=== PATIENT | male | born 1955 | race Caucasian/White ===

== ENCOUNTER → 2020-04-30 12:59 | Outpatient (CLI) | payer BC, SELFPAY ==
[2020-04-30 14:11] LABS: Basophils % 0.2 % (0.1-2.0); Eosinophils # 0.1 K/mm3 (0.0-0.4); Eosinophils % 1.1 % (0.1-12.0); Hematocrit 47.7 % (42.0-52.0); Hemoglobin 15.8 g/dL (14.1-18.0); Lymphocytes # 2.7 K/mm3 (0.7-4.5); Lymphocytes % 40.5 % (10-50); Mean Corpuscular HGB Conc 33.2 g/dL (31.8-35.4); Mean Corpuscular Hemoglobin 30.8 pg (27.0-31.2); Mean Platelet Volume 8.6 fl (7.4-10.4); Monocytes # 0.4 K/mm3 (0.1-1.0); Monocytes % 6.4 % (1.7-9.3); Neutrophils # 3.5 K/mm3 (1.8-7.8); Neutrophils % 51.9 % (37.0-80.0); Platelet Count 179 K/mm3 (142-424); Red Blood Count 5.13 M/mm3 (4.60-6.20); Red Cell Distribution Width 12.7 % (11.5-17.5); White Blood Count 6.7 K/mm3 (4.8-10.8)
[2020-04-30 15:27] LABS: Alanine Aminotransferase 25 U/L (12-78); Albumin Level 4.5 g/dl (3.5-5.0); Albumin/Globulin Ratio 1.8 (1.1-1.8); Alkaline Phosphatase 73 U/L (38-126); Anion Gap 12.6 mEq/L (5-15); Aspartate Amino Transferase 31 U/L (17-59); Bilirubin,Total 0.7 mg/dl (0.2-1.3); Blood Urea Nitrogen 20 mg/dl (9-20); Calcium 9.6 mg/dl (8.4-10.2); Carbon Dioxide 29 mmol/L (22.0-30.0); Chloride 102 mmol/L (98-107); Chol/HDL Ratio 4.4 (1-3.5); Cholesterol 231 mg/dl (140-200); Estimated Glomerular Filt Rate 76 ml/min (>60); GFR (African American) 92 ML/MIN (>60); Globulin 2.5 g/dL (1.3-3.2); Glucose 85 mg/dl (74-100); HDL Cholesterol 53 mg/dl (40-60); Potassium 4.6 mmoL/L (3.5-5.1); Sodium 139 mmol/L (136-145); Triglycerides 103 mg/dl (30-150); VLDL Cholesterol 21 mg/dL (0-40)
[2020-04-30 15:59] LABS: Prostate Specific Ag Screen 0.8 ng/ml (0.0-4.0); Thyroid Stimulating Hormone 2.09 uIU/mL (0.465-4.68)
[2020-05-02 13:01] LABS: C-Reactive Protein, Cardiac 1.19 mg/L (0.00-3.00)
== END ==
PROVIDERS: Visit Provider Internal Medicine
DX: E78.49 Other hyperlipidemia (principal); Z12.5 Encounter for screening for malignant neoplasm of prostate
CPT/HCPCS: 36415; 80053; 80061; 84443; 85025; 86141; G0103

== ENCOUNTER 2023-11-01 11:00 | Outpatient (RCR) | payer MEDICARE, SELFPAY ==
--- NOTE | 2023-10-01 17:49 | HMH.RHREAS ---
Rehab Reassessment Rehab OP Re-assessment Start: 07/20/23 14:53 Freq: Status: Active Protocol: Document 10/01/23 17:42 IMMANUEL (Rec: 10/01/23 17:49 IMMANUEL [email or web address]) E-signed By Kashif Waldron, PT QuickDASH Activities Please rate your ability to do the following activities in the last week by selecting the number below the appropriate response. 1. Open a tight or new jar. Mild difficulty 2. Do heavy c d reactor operator (e.g., wash Mild difficulty elena, floors). 3. Carry a shopping bag or briefcase. Mild difficulty 4. Wash your back. Moderate difficulty 5. Use a knife to cut food. Mild difficulty 6. Recreational activities in which you Severe difficulty take some force or impact through your arm, shoulder, or hand (e.g., golf, hammering, tennis, etc.). 7. During the past week, to what extent Not at all has your arm, shoulder or hand problem interfered with your normal social activities with family, friends, neighbors or groups? 8. During the past week, were you Slightly limited limited in your work or other regular daily activites as a result of your arm, shoulder or hand problem? 9. Arm, shoulder or hand pain. Moderate 10. Tingling (pins and needles) in your None arm, shoulder or hand. 11. During the past week, how much Moderate difficulty difficulty have you had sleeping because of the pain in your arm, shoulder or hand? Quick DASH 25 Rehab Re-assessment Subjective Subjective Patient reports 65% improvements since start of care. [ End ] Objective Objective Notes AROM: WNL MMT: WNL except for IR 4-/5 secondary to pain. Pain: 4/10 currently; 7/10 at worst over past week Neuro: WNL TTP: post ACJ 2/4 Assessment Progress Assessment Progressing as Expected Assessment Notes Patient has been seen in outpatient PT for 3 treatment visits secondary to time constraints with family illness. Most recently experienced an exacerbation of symptoms after an incident with pulling activities with work related activities. Patient would benefit from continuing with skilled PT interventions in order to address functional limitations with reaching/lifting/pulling activities. Patient goals met STG 2; LTG AROM Goals Not Met All others Revised Goals NA Plan Plan Continue with current POC. Frequency of Therapy 2x/week Duration of therapy 4 weeks Time and Billing Re-Eval Time 14 Re-Eval Billing Units 1 PHYSICIAN CERTIFICATION: I certify the specified therapy services for Sandip Boyle are required, authorized, and reviewed every 30 days.
== END 2023-11-01 12:00 | disposition home or self-care (01) ==
LOC: PT 11:00
PROVIDERS: Visit Provider Orthopaedic Surgery
DX: M25.511 Pain in right shoulder (principal); M75.01 Adhesive capsulitis of right shoulder
CPT/HCPCS: 97010; 97014; 97016; 97033; 97110; 97163; 97164; G0283

== ENCOUNTER 2024-05-06 09:58 | Outpatient (CLI) | payer MEDICARE, SELFPAY ==
[2024-05-06 10:40] LABS: Basophils % 0.6 % (0.1-2.0); Eosinophils # 0.1 K/mm3 (0.0-0.4); Eosinophils % 1.5 % (0.1-12.0); Hematocrit 46.3 % (42.0-52.0); Hemoglobin 16.4 g/dL (14.1-18.0); Lymphocytes # 2.4 K/mm3 (0.7-4.5); Lymphocytes % 32.2 % (10-50); Mean Corpuscular HGB Conc 35.3 g/dL (31.8-35.4); Mean Corpuscular Hemoglobin 32.2 pg (27.0-31.2); Mean Platelet Volume 9.3 fl (7.4-10.4); Monocytes # 0.3 K/mm3 (0.1-1.0); Monocytes % 4.4 % (1.7-9.3); Neutrophils # 4.6 K/mm3 (1.8-7.8); Neutrophils % 61.3 % (37.0-80.0); Platelet Count 162 K/mm3 (142-424); Red Blood Count 5.09 M/mm3 (4.60-6.20); Red Cell Distribution Width 13.4 % (11.5-17.5); White Blood Count 7.5 K/mm3 (4.8-10.8)
[2024-05-06 11:02] LABS: Alanine Aminotransferase 25 U/L (12-78); Albumin Level 4.1 g/dl (3.5-5.0); Albumin/Globulin Ratio 1.9 (1.1-1.8); Alkaline Phosphatase 74 U/L (38-126); Anion Gap 9.6 mEq/L (5-15); Aspartate Amino Transferase 25 U/L (17-59); Bilirubin,Total 0.6 mg/dl (0.2-1.3); Blood Urea Nitrogen 20 mg/dl (9-20); Calcium 9.1 mg/dl (8.4-10.2); Carbon Dioxide 28 mmol/L (22.0-30.0); Chloride 105 mmol/L (98-107); Chol/HDL Ratio 4.4 (1-3.5); Cholesterol 217 mg/dl (140-200); Estimated Glomerular Filt Rate 84 ml/min (>60); GFR (African American) 102 ML/MIN (>60); Globulin 2.2 g/dL (1.3-3.2); Glucose 115 mg/dl (74-100); HDL Cholesterol 49 mg/dl (40-60); Potassium 4.6 mmoL/L (3.5-5.1); Sodium 138 mmol/L (136-145); Total Protein,Serum 6.3 g/dl (6.3-8.2); Triglycerides 150 mg/dl (30-150); VLDL Cholesterol 30 mg/dL (0-40)
[2024-05-06 11:13] LABS: Direct LDL Cholesterol 149.06 mg/dL (100-129)
[2024-05-06 11:19] LABS: Free T4 (Free Thyroxine) 1.16 ng/dl (0.78-2.19)
[2024-05-06 11:33] LABS: Thyroid Stimulating Hormone 2.38 uIU/mL (0.465-4.68)
== END 2024-05-06 23:59 | disposition home or self-care (01) ==
PROVIDERS: Visit Provider Physician Assistant
DX: I10 Essential (primary) hypertension (principal); Z12.5 Encounter for screening for malignant neoplasm of prostate
CPT/HCPCS: 36415; 80053; 80061; 84439; 84443; 85025; G0103

== ENCOUNTER 2025-01-06 11:10 | Emergency (ER) | payer MEDICARE, SELFPAY ==
--- NOTE | 2025-01-06 11:17 | ECG_ITS ---
APPROVED REPORT Exam: Resting ECG HR:66 bpm ECG Measurements Heart Rate 66 AXES TN 185 P 63 QRSd 92 QRS 84 QT 413 T 45 QTc 427 Conclusion SINUS RHYTHM MODERATE ST DEPRESSION [0.05+ mV ST DEPRESSION] ABNORMAL ECG UNCONFIRMED REPORT Electronically signed by : Abdi Rivera, 01/06/2025 15:27:55
[2025-01-06 11:18] VITALS: PULSE 69; RESP 18; TEMP 36.6; O2SAT 99; BMI 29.0
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
--- OUTSIDE RECORDS SUMMARY | 2025-01-06 11:18 | XMS_ITS | Continuity of Care Document ---
Author Organization [facility], INTER[facility]INE [facility] Address [address] [place] [address] [place] [address] Assessment No assessment recorded. Plan of Treatment Reminders Order Date Submit Date Provider Last Modified By Organization Details Last Modified Time Details Appointments LEVEL 3 2024 09:30A Patrice DOYLE MD Not available Not available Not available Lab None recorded. Referral ophthalmo logist referral 2024 025 [email or web address] Junior Ponce MD, [address] [facility], [facility], [place], [address], 12/31/2024 14:18:36 Procedures None recorded. Surgeries None recorded. Imaging US, abdomen, complete 2024 025 [facility], [address], [address], [place], [address], 12/31/2024 13:02:35 Medication Orders None recorded. Patient TargetsNo targets recorded. Patient InstructionsNo instructions recorded. Reason for Referral Rn Otolaryngology Referral for Family history of Glaucoma Referring Physician: Fang Chase, Internal Medicine, Encounter Date: 12/31/2024 Problems Name Problem SNOMED Code Status Onset Date Resolution Date Notes Provider Name and Address Organization Details Recorded Time Essential hypertensio n 59719710 Active 2021 STEPHANIE BOLTON MD [address] [place], [address], [facility] 11:17:30 Dyslipidemi a 613149647 Active 2021 STEPHANIE BOLTON MD [address] [place] [address], [phone], [facility] 2 11:17:45 Gout 85571699 Active 2022 STEPHANIE BOLTON MD [address] [place] [address], [phone], [facility] 3 10:46:22 History of malignant basal cell neoplasm of skin 470331305 Active 2022 STEPHANIE BOLTON MD [address] [place] [address], [address], [facility] 3 10:46:41 Myalgia caused by statin 5315452798373 9106 Active 2022 STEPHANIE BOLTON MD [address] [place] [address], [address], [facility] 3 10:46:44 Pain of right shoulder joint 1412938107589 9100 Active 2022 STEPHANIE BOLTON MD [address] [place] [address], [address], [facility] 3 15:14:08 Hemorrhoids 46832415 Active 2022 STEPHANIE BOLTON MD [address] [place] [address], [phone], [facility] 3 15:16:47 Familial hypercholes terolemia 099543964 Active 2023 STEPHANIE BOLTON MD [address] [place] [address], [phone], [facility] 4 15:48:13 Problem Notes None recorded. Procedures Surgical History Date Name Laterality Status Provider Name and Address Organization Details Recorded Time 3 Digital Rectal Screening Exam completed STEPHANIE BOLTON MD [address] [place] [address], [phone], [facility] 06/05/2023 15:17:01 Imaging Results None recorded. Procedure Notes None recorded. Medical Equipment None Reported. Allergies No known drug allergies Medications Name Sig Start Date Stop Date Status Note LastModified by Organization Details LastModified Time losartan 50 mg tablet Take 1 tablet every day by oral route. 06/16 completed Not Available Not Available [...] Updated DateTime 5 185.42 cm 29.4 kg/m2 429146. 1 g 52 /min 98 % 98 % 97.6 [degF] 150/88 mm[Hg] Serena Patel [facility] 5 09:31:47 Social History Question Answer Notes LastModified by [employer] Details LastModified Time Tobacco Smoking Status Never Smoker Diandra Vela [facility] 02/05/2024 08:24:25 What Was The Date Of Your Most Recent Tobacco Screening? 02/05/2024 [email or web address] Information not available 02/05/2024 Sex: Unknown Functional Status Question Answer Note LastModified by [employer] Details LastModified Time What is your level of alcohol consumption? Occasional [email or web address] Information not available 02/05/2024 Mental Status None recorded. Family History Nothing Reported. Medical History No medical history recorded. Past Encounters Encounter ID Performer Location Encounter Start Date Encounter Closed Date Diagnosis/Indication Diagnosis SNOMED-CT Code Diagnosis ICD10 Code Diagnosis Note [id number] [facility] [place] [address] [address] 12/31/2024 09:24:53 12/31/2024 10:37:18 Family history of Glaucoma [id number] Z83.511 Essential hypertension 71753835 I10 Patient states his blood pressure is elevated today, as he did not take his blood pressure medication yet.Advise d patient to check blood pressure at home-May need to increase to 50 mg losartan. Liver cyst 96000292 K76. [address] 04/2022.Firtz hernandez requests repeat imaging on this- Health Concerns Section Related Observation LastModified by Organization Detai ls LastModified Time None Recorded Concern Status LastModified by Organization Details LastModified Time None Recorded Payers Encounter Date Sequence Insurance Name Policy Number Policy Allen Covered Member ID Allen Member ID Guarantor Name 12/31/2024 1 [employer] (MEDICARE REPLACEMENT/A DVANTAGE - PPO) Sandip Boyle [id number] Sandip Boyle Notes Date Note Type Note Provider Name and Address Organization Details Recorded Time 12/31/2024 text/html Patient is a 69-year-old male that presents to the clinic for a referral to an mechanic field service. Patient states that his parents both have [...] blood pressure medication yet. FANG CHASE PA-C [facility] [place], [address], [facility] 12/31/2024 12:48:41
[2025-01-06 11:26] VITALS: BP 187/112; PULSE 69; RESP 18; TEMP 36.6
--- NOTE | 2025-01-06 11:44 | XR_ITS ---
FINAL REPORT CLINICAL HISTORY: dyspnea COMPARISON: None FINDINGS: CHEST SINGLE VIEW: The heart size is normal. The mediastinum is normal. There is no focal infiltrate or edema. There are no pleural effusions. There is no pneumothorax. There is no osseous abnormality. IMPRESSION: No acute cardiopulmonary process Reviewed, Interpreted and Dictated by Jos Ravi MD Transcribed by Clarissa Escobar Authenticated and [facility]
[2025-01-06] MEDS: LACTATED RINGERS 1000ML 1,000 ML 999 ML IV (11:47)
--- NOTE | 2025-01-06 11:48 | ED_ITS ---
Discharge Plan Disposition Patient Disposition: Home, Self-Care Referrals Follow up/Referrals: Marcelino Blackman MD [Staff Physician, Cardiology] - See instructions Provider,MD Mike [Primary Care Provider, Medical] - See instructions Activity Restrictions/Add. Instructions Additional Instructions/Restrictions: Given your hypertension inappropriate sinus tachycardia and intermittent sinus bradycardia I recommend closely follow-up with cardiology. No emergent medical condition identified today. Clinical Impressions Clinical Impression: Hypertension, Inappropriate sinus tachycardia, Chest discomfort, Bradycardia, sinus Print Language Print Language: Anguillan Discharge ED Provider: Luke Rivera General Adult HPI General Chief complaint: Recheck/Abnormal Lab/Rx Stated complaint: high b/p, high heartrate Time Seen by Provider: 01/06/25 11:31 Mode of Arrival: Ambulatory Source of Information: Patient Description of Symptoms (Recalled from ER Triage Doc. by RN): Pt reports elevated BP, and indegestion. Pt denies any pain or further symptoms at this time. History of Present Illness HPI narrative: Patient is a 69-year-old male presenting today with multiple complaints. States he was working outside yesterday got a bit warm has a known history of a hiatal hernia had some discomfort in his chest with bending over. He states that he checks his blood pressure and his vital signs every evening states he has some anxiety and OCD from his own admission and noted that he was hypertensive and tachycardic. Heart rate was in the 130s. States he felt some pressure in his head otherwise had no symptoms. Additionally the patient states he is had some significant discomfort in his chest that he described as feeling like he needed to burp but had a hard time. Has been able to swallow liquids and solids without any difficulty. He has not had any exertional symptoms. States that he had extensive cardiac workup about 20 years ago at which point everything was normal. Symptoms he had at that time resolved by discontinuing coffee. Patient currently is without symptoms at the moment. Related Data Allergies Allergy/AdvReac Type Severity Reaction Status Date / Time No Known Allergies Allergy Verified 07/07/18 09:52 [facility] Disclaimer: The information contained in this section may have been updated after the patient was seen, as this information can be updated by other users. Social History Smoking Status: Never smoker alcohol intake: never current occupational status: other Travel in the last 8 weeks?: None ROS Obtained: Yes All systems reviewed & no additional complaints except as documented Physical Exam General General appearance: alert and in no apparent distress Respiratory Respiratory exam: Present normal lung sounds bilaterally and respiratory distress Cardiovascular Cardiovascular exam: Present regular rate and normal rhythm Abdominal Exam Abdominal exam: Present soft and distention Neurological Exam Neurological exam: Present alert, oriented X3, CN II-XII intact and normal gait; Absent motor sensory deficit Medical Decision Making Medical Records Screening: Per USPSTF and CDC recommendations, given the prevalence of disease in our region, it is our hospital?s policy to screen for HIV and viral Hepatitis for all patients aged 18 and over and those with ongoing risk factors. Ramana Inquiry Pt receiving controlled substance: No Vital Signs: 01/06/25 11:18 01/06/25 11:26 01/06/25 12:00 Temperature 97.8 F 97.8 F Temperature Source Oral Oral Pulse Rate 54 L Pulse Rate [Left] 69 69 Respiratory Rate 18 18 12 Blood Pressure 133/82 Blood Pressure [Right Arm] 187/112 H Blood Pressure Mean [Right Arm] 137 Blood Pressure Source [Right Arm] Automatic Cuff Automatic Cuff 02 Sat by Pulse Oximetry 99 95 Oxygen Delivery Method Room Air 01/06/25 12:30 Temperature Temperature Source Pulse Rate 49 L Pulse Rate [Left] Respiratory Rate 11 L Blood Pressure 131/72 Blood Pressure [Right Arm] Blood Pressure Mean [Right Arm] Blood Pressure Source [Right Arm] 02 Sat by Pulse Oximetry 95 Oxygen Delivery Method Lab Data Lab results reviewed: Yes I reviewed the patient's lab results. Lab Results 01/06/25 11:24: WBC 7.3, RBC 5.14, Hgb 16.0, Hct 45.3, MCV 88.1, MCH 31.1, MCHC 35.3, RDW 12.8, Plt Count 197, MPV 11.8 H, Neut % (Auto) 48.4, Lymph % (Auto) 44.4, Alpine % (Auto) 5.9, Eos % (Auto) 1.1, Baso % (Auto) 0.1, Neut # (Auto) 3.6, Lymph # (Auto) 3.3, Alpine # (Auto) 0.4, Eos # (Auto) 0.1, Baso # (Auto) 0.0, Sodium 138, Potassium 4.3, Chloride 100, Carbon Dioxide 26, Anion Gap 16.3 H, B UN 23 H, Creatinine 1.00, Estimated Creat Clear 101, Estimated GFR 75, Est GFR ( Amer) 90, Glucose 120 H, Calcium 9.4, Magnesium 1.8, Total Bilirubin 0.7, AST 33, ALT 29, Alkaline Phosphatase 66, Troponin I < 0.01, Total Protein 7.3, Albumin 4.6, Globulin 2.7, Albumin/Globulin Ratio 1.7, Lipase 67, TSH 2.75 01/06/25 11:24 01/06/25 11:24 Orders (Tests/Meds): ED MEDICATIONS Discontinued Medications Generic Name Dose Route Start Last Admin Trade Name Freq PRN Reason Stop Dose Admin Lactated Ringer's 1,000 mls @ 999 mls/hr 01/06/25 11:45 01/06/25 11:47 Lactated Ringer's 1000 Ml Bag IV 01/06/25 12:45 999 mls/hr .Q1H1M JACOB Administration ORDERS Category Date Time Status CXR --portable [XR chest portable] Stat Exams 01/06/25 11:44 Taken CBC w/Auto Diff [Complete Blood Count Auto Diff] Stat Lab 01/06/25 11:24 Completed CMP [Comprehensive Metabolic Panel] Stat Lab 01/06/25 11:24 Completed HIV Combo Stat Lab 01/06/25 11:25 Received Hepatitis C Ab Qual. W/ RFX Stat Lab 01/06/25 11:25 Received Lipase Stat Lab 01/06/25 11:24 Completed Magnesium Stat Lab 01/06/25 11:24 Completed TSH [Thyroid Stimulating Hormone] Stat Lab 01/06/25 11:24 Completed Trop I [Troponin I] Stat Lab 01/06/25 11:24 Completed Troponin I Q3H Lab 01/06/25 14:45 Ordered Troponin I Q3H Lab 01/06/25 17:45 Ordered Medical Decision Narrative: 69-year-old above history and physical. EKG was performed I personally interpreted which shows sinus rhythm heart rate of 66 no acute ischemic changes noted there is normal axis no significant conduction abnormalities. Patient is currently asymptomatic he did describe some chest discomfort prior to arrival will get a single troponin to rule out any type of myocardial involvement or myocardial injury. Patient does describe this chest discomfort as being alleviated with belching certainly could have been a gas bubble. Has no abdominal tenderness but will get a lipase as he describes this in the mid epigastric region. Also states he has a known history of a hiatal hernia. This is likely unrelated no evidence that has twisted or has a volvulus. Patient however did have hypertension and inappropriate sinus tachycardia when he checked his vital signs. Certainly could have been associated with anxiety as he admittedly states he has some and some OCD over his health. However he has not been seen by middleware architect in over 20 years. Will work him up for nonspecific arrhythmia and cardiopulmonary emergencies. He is currently PERC negative and asymptomatic will not workup evaluation for pulmonary embolism further. If his workup is normal which I anticipate that it will be I will advise that he follow-up with cardiology at a minimum to get a Holter monitor but likely will need further cardiac evaluation. Chest x-ray performed I personally interpreted which shows no evidence of an acute cardiopulmonary emergency. Labs unremarkable patient remains asymptomatic and very well-appearing on serial assessments. Nothing to suggest any significant underlying cause of arrhythmia. Patient most the time in the emergency department has been in sinus bradycardia we did get a second EKG as heart rate was in the 40s he had a short NV interval but otherwise no delta wave or anything else to suggest a reentrant rhythm. He will follow-up closely with cardiology for further discussion and evaluation of his symptoms. No emergent medical condition identified he was discharged in stable condition. Critical Care Critical Care Time Critical Care Time: No
[2025-01-06 11:49] LABS: Hematocrit 45.3 % (42.0-52.0); Hemoglobin 16.0 g/dL (14.1-18.0); Immature Granulocytes % 0.1 %; Mean Corpuscular HGB Conc 35.3 g/dL (31.8-35.4); Mean Corpuscular Hemoglobin 31.1 pg (27.0-31.2); Mean Corpuscular Volume 88.1 fl (80-94); Nucleated Red Blood Cells % 0 %; Platelet Count 197 K/mm3 (142-424); Red Blood Count 5.14 M/mm3 (4.60-6.20); Red Cell Distribution Width-SD 41.4 fL; White Blood Count 7.3 K/mm3 (4.8-10.8)
[2025-01-06 11:58] LABS: Alanine Aminotransferase 29 U/L (12-78); Albumin Level 4.6 g/dl (3.5-5.0); Albumin/Globulin Ratio 1.7 (1.1-1.8); Alkaline Phosphatase 66 U/L (38-126); Anion Gap 16.3 mEq/L (5-15); Aspartate Amino Transferase 33 U/L (17-59); Bilirubin,Total 0.7 mg/dl (0.2-1.3); Blood Urea Nitrogen 23 mg/dl (9-20); Calcium 9.4 mg/dl (8.4-10.2); Carbon Dioxide 26 mmol/L (22.0-30.0); Chloride 100 mmol/L (98-107); Creatinine Clearance Estimated 101 mL/min (50-200); Creatinine,Serum 1.00 mg/dl (0.66-1.25); Estimated Glomerular Filt Rate 75 ml/min (>60); GFR (African American) 90 ML/MIN (>60); Globulin 2.7 g/dL (1.3-3.2); Glucose 120 mg/dl (74-100); Potassium 4.3 mmoL/L (3.5-5.1); Sodium 138 mmol/L (136-145); Total Protein,Serum 7.3 g/dl (6.3-8.2)
[2025-01-06 11:59] LABS: Lipase 67 U/L (23-300); Magnesium 1.8 mg/dl (1.6-2.3)
[2025-01-06 12:00] VITALS: BP 133/82; PULSE 54; RESP 12; O2SAT 95
[2025-01-06 12:14] LABS: Troponin I < 0.01 ng/ml (0.00-0.034)
[2025-01-06 12:29] LABS: Thyroid Stimulating Hormone 2.75 uIU/mL (0.465-4.68)
[2025-01-06 12:30] VITALS: BP 131/72; PULSE 49; RESP 11; O2SAT 95
--- NOTE | 2025-01-06 12:49 | ECG_ITS ---
APPROVED REPORT Exam: Resting ECG HR:44 bpm ECG Measurements Heart Rate 44 AXES TN 98 P 76 QRSd 88 QRS 73 QT 476 T 59 QTc 425 Conclusion SINUS BRADYCARDIA WITH SHORT TN INTERVAL BORDERLINE ECG UNCONFIRMED REPORT Electronically signed by : Abdi Rivera, 01/06/2025 15:27:37
[2025-01-06 13:18] VITALS: BP 131/72; PULSE 58; RESP 16; TEMP 36.6; O2SAT 96
[2025-01-06 14:39] LABS: Hepatitis C Ab Qual. W/ RFX NEGATIVE (Negative)
== END 2025-01-06 13:24 | disposition home or self-care (01) ==
PROVIDERS: Emergency Provider Student in an Organized Health Care Education/Training Program
DX: R07.9 Chest pain, unspecified (principal); R00.0 Tachycardia, unspecified; I10 Essential (primary) hypertension; R00.1 Bradycardia, unspecified; Z11.59 Encounter for screening for other viral diseases; Z11.4 Encounter for screening for human immunodeficiency virus [HIV]
CPT/HCPCS: 71045; 80053; 83690; 83735; 84443; 84484; 85025; 86803; 87389; 93005; 96360; 99284; J7120